=== PATIENT | female | born 1975 | race African-American/Black ===

== ENCOUNTER 2016-07-31 06:40 | Observation (INO) | payer OTHER ==
[~2016-07-31] VITALS: Ht 172.7 cm; Wt 104.3 kg
[2016-07-31] VITALS (8 sets, daily range): BP systolic 105–124; BP diastolic 53–74
[~2016-07-31 06:40] MED LIST: DIBU28OI RC
[2016-07-31] MEDS ORDERED: fentaNYL PF VIAL 100 MCG/2 ML VIAL IV PRN (07:00)
[2016-07-31] MEDS ORDERED: ONDANSETRON PF 4 MG/2 ML VIAL. IV PRN ×2 (07:00→10:00)
[2016-07-31] MEDS ORDERED: LIDOCAINE 1% 1 ML SYRINGE. ID PRN (07:00)
[2016-07-31] MEDS ORDERED: MORPHINE SULFATE 2 MG/ML DISP.SYRIN. IV PRN (07:00)
[2016-07-31] MEDS ORDERED: IV RINGERS,LACTATED 1000ML 1,000 ML IV SCH (07:00)
[2016-07-31] MEDS ORDERED: HYDROmorphone 2 MG/ML VIAL IV PRN (07:00)
[2016-07-31] MEDS ORDERED: PROCHLORPERAZINE 10 MG/2 ML VIAL. IV PRN ×2 (07:00→10:00)
[2016-07-31] MEDS ORDERED: ESTROGENS, CONJ VAGINAL CREAM 30GM TUBE. ONE (07:02)
[2016-07-31] MEDS ORDERED: BUPIVACAINE-EPI 0.25%-1:200000 MPF 30 ML VIAL. ONE (07:02)
[2016-07-31] MEDS ORDERED: METHYLENE BLUE 1% 1 ML VIAL. ONE (07:02)
[2016-07-31] MEDS ORDERED: SURGICEL HEMOSTAT 4X8 EACH. ONE (07:02)
[2016-07-31] MEDS ORDERED: LIDOCAINE 1%/EPI 1:100,000 20 ML VIAL. ONE (07:02)
[2016-07-31] MEDS ORDERED: LIDOCAINE 2% PF Vial for OR 5 ML VIAL. ONE (07:09)
[2016-07-31] MEDS ORDERED: PROPOFOL 20 ML IV ONE (07:09)
[2016-07-31] MEDS ORDERED: ROCURONIUM 50 MG/5 ML VIAL. ONE (07:09)
[2016-07-31] MEDS ORDERED: SUCCINYLCHOLINE 200 MG/10 ML VIAL. ONE (07:10)
[2016-07-31] MEDS ORDERED: FAMOTIDINE 20 MG/2 ML VIAL ONE (07:11)
[2016-07-31] MEDS ORDERED: ONDANSETRON PF 4 MG/2 ML VIAL. ONE (07:11)
[2016-07-31] MEDS ORDERED: DEXAMETHASONE SOD PHOS 20 MG/5 ML VIAL. ONE (07:11)
[2016-07-31] MEDS ORDERED: fentaNYL PF VIAL 250 MCG/5 ML VIAL ONE (07:12)
[2016-07-31] MEDS ORDERED: MIDAZOLAM HCL/PF 2 MG/2 ML VIAL. ONE (07:12)
[2016-07-31] MEDS ORDERED: OMEP20CA9 PO (07:20)
[2016-07-31] MEDS ORDERED: FERR325T31 PO (07:20)
[2016-07-31 07:32] LABS: NEG OBC UR NEG; POS OBC UR POS
[2016-07-31 07:35] LABS: BASO % 1 % (0-3); EOS % 2 % (0-3); HEMATOCRIT 36.8 % (36.0-47.0); HEMOGLOBIN 11.3 g/dL (12.0-15.5); LYMPH # 1.9 x10^3/uL (1.0-4.8); LYMPH % 50 % (24-48); MEAN CORPUSCULAR HEMOGLOBIN 25 pg (25-35); MEAN CORPUSCULAR HGB CONC 31 g/dL (31-37); MEAN CORPUSCULAR VOLUME 81 fL (79-100); MONO % 8 % (0-9); NEUT % 39 % (31-73); PLATELET COUNT 274 x10^3/uL (140-400); RED BLOOD COUNT 4.56 x10^6/uL (3.50-5.40); RED CELL DISTRIBUTION WIDTH 24.3 % (11.5-14.5); WHITE BLOOD COUNT 3.9 x10^3/uL (4.0-11.0)
[2016-07-31] MEDS ORDERED: ePHEDrine PF IN SALINE 50 MG/5 ML DISP.SYRIN IV ONE (08:17)
[2016-07-31] MEDS ORDERED: METOCLOPRAMIDE HCL 10 MG/2 ML VIAL. ONE (08:18)
[2016-07-31] MEDS ORDERED: NEOSTIGMINE 10 MG/10 ML VIAL. ONE (08:34)
[2016-07-31] MEDS ORDERED: GLYCOPYRROLATE 1 MG/5 ML VIAL. ONE (08:34)
[2016-07-31] MEDS ORDERED: fentaNYL PF VIAL 100 MCG/2 ML VIAL ONE (09:12)
[2016-07-31] MEDS ORDERED: LABETALOL 20 MG/4 ML DISP.SYRIN. ONE (09:22)
[2016-07-31] MEDS ORDERED: SEVOFLURANE 61 TO 120 MINUTES. IH ONE (09:48)
[2016-07-31 09:49] LABS: ANISOCYTOSIS MOD; HYPOCHROMIA SLIGHT; PLT ESTIMATE ADEQUATE (ADEQUATE)
[2016-07-31 09:50] LABS: MICROCYTOSIS MOD
[2016-07-31 09:51] LABS: SCHISTOCYTES FEW
[2016-07-31] MEDS ORDERED: ZOLPIDEM 5 MG TABLET. PO PRN (10:00)
[2016-07-31] MEDS ORDERED: diphenhydrAMINE HCL 25 MG CAPSULE PO PRN (10:00)
[2016-07-31] MEDS ORDERED: CALCIUM CARBONATE 500 MG TAB.CHEW PO PRN (10:00)
[2016-07-31] MEDS ORDERED: diphenhydrAMINE 50 MG/ML VIAL IV PRN (10:00)
[2016-07-31] MEDS ORDERED: 0.9 % SODIUM CHLORIDE 10 ML DISP.SYRIN. IV PRN (10:00)
[2016-07-31] MEDS ORDERED: DEXTROSE 50% 25 GM / 50ML DISP.SYRIN. IV PRN (10:00)
[2016-07-31] MEDS ORDERED: KETOROLAC TROMETHAMINE 30 MG/ML INJ. IV PRN (10:00)
[2016-07-31] MEDS ORDERED: SIMETHICONE 80 MG TAB.CHEW PO PRN (10:00)
--- NOTE | 2016-07-31 10:00 | PDOC ---
BRIEF OPERATIVE NOTE Pre-Op Diagnosis 1. Menorrhagia 2. Dysmenorrhea 3. Dyspareunia 4. Fibroids Post-Op Diagnosis SAme Procedure Performed TLH via [facility] robot Surgeon Dr. Skylar Naranjo Alexey Anesthesia Type: General Blood Loss 50 ml Specimens Obtained uterus and cervix Findings enlarged, fibroid uterus, pelvic sidewall adhesions; nml ovaries nona. Complications none Additional Remarks pt. MARYCRUZ Pal Jr, MD July 31, 2016 10:00
[2016-07-31] MEDS: fentaNYL PF VIAL 100 MCG/2 ML VIAL IV PRN ×2 (10:39→10:44)
--- NOTE | 2016-07-31 12:47 | OP ---
DATE OF SURGERY: 07/31/2016 PREOPERATIVE DIAGNOSES: 1. Menorrhagia. 2. Dysmenorrhea. 3. Dyspareunia. 4. Fibroids. POSTOPERATIVE DIAGNOSES: 1. Menorrhagia. 2. Dysmenorrhea. 3. Dyspareunia. 4. Fibroids. PROCEDURE: TLH via da Marion robot. SURGEON: Dr. Cheng. LAND AGENT: ____. ANESTHESIA: GETA. ESTIMATED BLOOD LOSS: 50 mL. COMPLICATIONS: None. FINDINGS: Enlarged fibroid uterus, pelvic sidewall adhesions, normal ovaries bilaterally, possible hydrosalpinx on the right adnexa. SUMMARY: A 41-year-old female, who required hysterectomy due to fibroids, menorrhagia, dysmenorrhea, and dyspareunia. She was counseled on risks, benefits and expectations as TLH via da Marion robot and voiced clear understanding to proceed. DESCRIPTION OF PROCEDURE: The patient was taken to surgery suite and placed in dorsal lithotomy position. She was prepped with Betadine solution for vaginal prep and ChloraPrep for abdominal prep. After adequate anesthesia, bivalve speculum was placed vaginally. Anterior lip of the cervix grasped with a single tooth tenaculum. The Yvrose uterine manipulator was then placed. Single tooth tenaculum and bivalve speculum removed. Attention was now placed on abdomen. Small transverse skin incision was made just below the umbilicus with a scalpel. The Veress needle was then placed through the infraumbilical incision site. The abdomen was allowed to insufflate up to 2.5 liters CO2 gas. The Veress needle was then removed. An 8 mm trocar was placed with camera port. Camera was positioned. The uterus appeared enlarged with fibroids. There were pelvic sidewall adhesions and right hydrosalpinx. Incisions were made in the left and right lower quadrant with a scalpel, in which 8 mm trocars were placed. An accessory port was placed in the left upper quadrant, which was a 5 mm port. The da Marion robot was then docked in normal fashion. Then proceeded to the console. With the aid of the vessel sealer and bipolar cautery, the right round ligament was coagulated and dissected. The right distal area of the hydrosalpinx was coagulated and dissected. The uterine-ovarian pedicle was coagulated and dissected. The right broad ligament as well as the right uterine artery was coagulated and dissected. Same process took place for the left adnexa. Bladder flap was created with the vessel sealer and blunt dissection. Spatula was utilized to perform the colpotomy at the level of the cervical ring. The cervix, uterus as well as the right hydrosalpinx was removed. The vaginal cuff was reapproximated using V-Loc suture in a running fashion. Suction irrigation was utilized to verify good hemostasis, small amount of normal saline was left in the posterior cul-de-sac. The trocars were removed under direct visualization. The abdomen was deflated as much as possible along with mechanical manipulation. The skin incisions were reapproximated using 4-0 Vicryl suture in subcuticular manner. A 0.25% Marcaine with epinephrine was injected at each incision site. A moist vaginal packing was placed vaginally. The patient tolerated procedure well and was taken to recovery room in stable condition. Sponge and needle counts correct x 3. MARYCRUZ CHENG MD DR: SHELL/jenny JOB#: [id number] / [id number]
[2016-07-31] MEDS: GABAPENTIN 300 MG CAPSULE. PO SCH ×2 (14:00→22:00)
[2016-07-31] MEDS: oxyCODONE/APAP 5/325 1 TAB TABLET PO PRN ×2 (17:58→22:01)
[2016-08-01 03:20] LABS: BASO % 1 % (0-3); EOS % 0 % (0-3); HEMATOCRIT 34.3 % (36.0-47.0); HEMOGLOBIN 10.4 g/dL (12.0-15.5); LYMPH # 1.4 x10^3/uL (1.0-4.8); LYMPH % 18 % (24-48); MEAN CORPUSCULAR HEMOGLOBIN 25 pg (25-35); MEAN CORPUSCULAR HGB CONC 30 g/dL (31-37); MEAN CORPUSCULAR VOLUME 81 fL (79-100); MONO % 6 % (0-9); NEUT % 75 % (31-73); PLATELET COUNT 256 x10^3/uL (140-400); RED BLOOD COUNT 4.21 x10^6/uL (3.50-5.40); WHITE BLOOD COUNT 7.7 x10^3/uL (4.0-11.0)
[2016-08-01 05:41] VITALS: BP 124/67
[2016-08-01] MEDS: GABAPENTIN 300 MG CAPSULE. PO SCH ×2 (05:52→12:30)
[2016-08-01] MEDS: oxyCODONE/APAP 5/325 1 TAB TABLET PO PRN ×3 (05:53→18:05)
[2016-08-01 12:35] VITALS: BP 118/68
--- NOTE | 2016-08-01 15:38 | PDOC ---
SURGICAL PROGRESS NOTE Subjective Pt. feeling well. Tolerating regular diet and ambulating in room. Vital Signs Vital Signs Date Time Temp Pulse Resp B/P (MAP) Pulse Ox O2 Delivery O2 Flow Rate FiO2 08/01/16 12:35 98.4 74 18 118/68 (85) 99 Room Air 98.4 07/31/16 11:40 2.0 I&O Intake and Output 08/01/16 07:00 Intake Total 2640 ml Output Total 2225 ml Balance 415 ml Intake Oral 740 ml IV Total 1900 ml Output Urine Total 2200 ml Estimated Blood Loss 25 ml PATIENT HAS A VIERA: No General: Alert, Oriented X3, Cooperative HEENT: Atraumatic Lungs: Clear to auscultation Heart: Regular rate Abdomen: Normal bowel sounds, Soft, No tenderness, No masses Extremities: No edema Psych/Mental Status: Mental status NL Labs Laboratory Tests Test 07/31/16 07:15 08/01/16 02:00 White Blood Count 3.9 x10^3/uL (4.0-11.0) 7.7 x10^3/uL (4.0-11.0) Red Blood Count 4.56 x10^6/uL (3.50-5.40) 4.21 x10^6/uL (3.50-5.40) Hemoglobin 11.3 g/dL (12.0-15.5) 10.4 g/dL (12.0-15.5) Hematocrit 36.8 % (36.0-47.0) 34.3 % (36.0-47.0) Mean Corpuscular Volume 81 fL (79-100) 81 fL (79-100) Mean Corpuscular Hemoglobin 25 pg (25-35) 25 pg (25-35) Mean Corpuscular Hemoglobin Concent 31 g/dL (31-37) 30 g/dL (31-37) Red Cell Distribution Width 24.3 % (11.5-14.5) 24.0 % (11.5-14.5) Platelet Count 274 x10^3/uL (140-400) 256 x10^3/uL (140-400) Neutrophils (%) (Auto) 39 % (31-73) 75 % (31-73) Lymphocytes (%) (Auto) 50 % (24-48) 18 % (24-48) Monocytes (%) (Auto) 8 % (0-9) 6 % (0-9) Eosinophils (%) (Auto) 2 % (0-3) 0 % (0-3) Basophils (%) (Auto) 1 % (0-3) 1 % (0-3) Neutrophils # (Auto) 1.5 x10^3uL (1.8-7.7) 5.8 x10^3uL (1.8-7.7) Lymphocytes # (Auto) 1.9 x10^3/uL (1.0-4.8) 1.4 x10^3/uL (1.0-4.8) Monocytes # (Auto) 0.3 x10^3/uL (0.0-1.1) 0.4 x10^3/uL (0.0-1.1) Eosinophils # (Auto) 0.1 x10^3/uL (0.0-0.7) 0.0 x10^3/uL (0.0-0.7) Basophils # (Auto) 0.0 x10^3/uL (0.0-0.2) 0.0 x10^3/uL (0.0-0.2) Platelet Estimate Adequate (ADEQUATE) Hypochromasia Slight Anisocytosis Mod Microcytosis Mod Schistocytes Few Urine Test Negative (NEG) Laboratory Tests Test 08/01/16 02:00 White Blood Count 7.7 x10^3/uL (4.0-11.0) Red Blood Count 4.21 x10^6/uL (3.50-5.40) Hemoglobin 10.4 g/dL (12.0-15.5) Hematocrit 34.3 % (36.0-47.0) Mean Corpuscular Volume 81 fL (79-100) Mean Corpuscular Hemoglobin 25 pg (25-35) Mean Corpuscular Hemoglobin Concent 30 g/dL (31-37) Red Cell Distribution Width 24.0 % (11.5-14.5) Platelet Count 256 x10^3/uL (140-400) Neutrophils (%) (Auto) 75 % (31-73) Lymphocytes (%) (Auto) 18 % (24-48) Monocytes (%) (Auto) 6 % (0-9) Eosinophils (%) (Auto) 0 % (0-3) Basophils (%) (Auto) 1 % (0-3) Neutrophils # (Auto) 5.8 x10^3uL (1.8-7.7) Lymphocytes # (Auto) 1.4 x10^3/uL (1.0-4.8) Monocytes # (Auto) 0.4 x10^3/uL (0.0-1.1) Eosinophils # (Auto) 0.0 x10^3/uL (0.0-0.7) Basophils # (Auto) 0.0 x10^3/uL (0.0-0.2) Assessment/Plan A: POD#1 s/p TLH P: D/c home when passsing flatus and emptying bladder. F/u in 2 weeks. Problems: MARYCRUZ RIVER Jr, MD August 01, 2016 15:38
--- NOTE | 2016-08-01 15:39 | DISCH ---
DISCHARGE INSTRUCTIONS Condition on Discharge Condition on Discharge: Stable Activity After Discharge Activity Instructions for Disc: Activity as tolerated Lifting Instructions after Dis: No heavy lifting Driving Instructions after Dis: Do not drive today Diet after Discharge Diet after Discharge: Regular Contacting the [facility]iffin after DC Call your doctor for: Concerns you may have Follow-Up Follow up with: Dr. Cheng in 2 weeks. MARYCRUZ CHENG Jr, MD August 01, 2016 15:39
[2016-08-01] MEDS ORDERED: IBUP-1060 PO (15:42)
[2016-08-01] MEDS ORDERED: DOCU-27 PO (15:42)
[2016-08-01] MEDS ORDERED: OXYC-323 PO (15:42)
[2016-08-01 18:07] VITALS: BP 118/79
--- NOTE | 2016-08-06 11:05 | PATHOLOGY ---
PATHOLOGY REPORT * * * * * * * * FINAL DIAGNOSIS: Uterus, robotic laparoscopic hysterectomy: - Adenomyosis, uterine corpus, with myometrial hypertrophy (uterine weight 202 grams). - Mild active chronic cervicitis with focal squamous metaplasia. - Nabothian cysts, cervix. - Proliferative endometrium. COMMENT: There is no evidence of malignancy. (JPM:; d/t: 08/05/16) REPORT ELECTRONICALLY SIGNED BY: Corey Wetzel M.D. DATE/TIME: 08/05/2016 13:26 * * * * * * * * GROSS PATHOLOGY: The specimen is received in formalin labeled "Malinda Rudd, uterus with cervix". Received is a 202 g, 10.7 x 6.9 x 5.9 cm uterus with attached cervix. The uterine serosa is pale ocampo in appearance with a moderate amount of adhesions present near the fundus. The 1.1 cm cervical os is surrounded by pink-zuniga, smooth ectocervical mucosa. The uterus is oriented using the peritoneal reflection and the anterior paracervical margin is inked black. The uterus is opened laterally to reveal a pale ocampo, slightly corrugated endocervical canal measuring 3.2 cm in length. The endometrial cavity is triangular measuring 9.5 cm in length by 2.5 cm in width. The endometrium is pale ocampo, glistening in appearance and measures 0.1 cm in thickness. Serial sectioning reveals a ocampo-pink, trabeculated myometrium measuring up to 3.3 cm in thickness displaying evidence of possible adenomyosis. The specimen is submitted representatively as follows: A1 12:00 cervix A2 6:00 cervix A3 anterior endomyometrium A4 posterior endomyometrium. (CAA; 08/02/2016) INITIAL CPT CODE(S): A; 48221 Professional services performed by [facility] [address] [place] [address] Technical services performed by [facility] at [address] [place] [address], [address], [place] [address]. SPECIMEN(S) RECEIVED: A.Uterus with cervix CLINICAL HISTORY: Excessive or frequent menstruation, fibroid, dysmenorrhea, dyspareunia PATIENT: MALINDA RUDD /AGE: 305/10/1975 (Age: 41) PATIENT #: [id number] ALT CASE #: SPECIMEN COLLECTION DATE: 07/31/2016 SPECIMEN RECEIVED DATE: 07/31/2016 [facility] - [address] [place] [address] - PHONE: [phone] * * * END OF REPORT * * *
== END 2016-08-01 19:30 | disposition home or self-care (01) ==
LOC: SURG 06:40 → 3 NORTH 10:20
PROVIDERS: ADMIT Obstetrics & Gynecology; ATTEND Obstetrics & Gynecology
DX: N92.0 Excessive and frequent menstruation with regular cycle (principal); N94.6 Dysmenorrhea, unspecified; N94.10 Unspecified dyspareunia; D25.9 Leiomyoma of uterus, unspecified; N73.6 Female pelvic peritoneal adhesions (postinfective)
CPT/HCPCS: 36415; 58570; 81025; 85007; 85027; 86850; 86900; 86901; 96374; A4215; G0378; G0379; J0330; J0690; J0780; J1100; J1885; J2250; J2405; J2704; J2710; J2765; J3010; J3490; J7030; J7120; S0028; S2900; 88307; Q9968

== ENCOUNTER → 2018-02-04 | Outpatient (CLI) | payer OTHER ==
[~2018-02-04] MED LIST changes: +DOCU-109 PO; +FERR-36 PO; +IBUP-1060 PO; +OMEP20CA9 PO; +OXYC1TAB15 PO
== END | disposition home or self-care (01) ==
LOC: EKG 13:21
PROVIDERS: ATTEND Family Medicine
DX: R55 Syncope and collapse (principal)
CPT/HCPCS: 93225

== ENCOUNTER → 2018-08-18 | Outpatient (CLI) | payer OTHER ==
[~2018-08-18] MED LIST changes: +OMEP20CA10 PO; -OMEP20CA9 PO
== END | disposition home or self-care (01) ==
LOC: LAB 15:51
PROVIDERS: ATTEND Obstetrics & Gynecology
DX: A60.04 Herpesviral vulvovaginitis (principal)
CPT/HCPCS: 36415; 86695

== ENCOUNTER → 2020-04-12 | Outpatient (CLI) | payer OTHER ==
[~2020-04-12] MED LIST changes: +DEXAMETHASONE SOD PHOS 4 MG/ML VIAL ONE; +LIDOCAINE 2% PF 5 ML VIAL. ONE; -OMEP20CA10 PO; +OMEP20CA16 PO; +ONDANSETRON PF 4 MG/2 ML VIAL. ONE; +PROPOFOL 10 MG/ML (20ML) VIAL. IV ONE; +SEVOFLURANE 16 TO 30 MINUTES. IH ONE; +fentaNYL PF VIAL 100 MCG/2 ML VIAL ONE
--- NOTE | 2020-04-12 17:39 | RAD ---
Examination: 1. Bilateral diagnostic mammogram. 2. Limited left breast ultrasound. INDICATION: 44-year-old woman due for mammographic screening presents with focal inferior left breast pain at mid to posterior depth. No palpable areas of concern by report. COMPARISON: None. This will serve as a baseline TECHNIQUE: CC and MLO views of both breasts were obtained with 2-D and 3-D technique and reviewed wit h computer-aided detection. Targeted ultrasound of the inferior left breast was next performed. FINDINGS: Scattered fibroglandular densities. The right and left breasts are negative. Targeted ultrasound of the inferior left breast shows an oval parallel orientation circumscribed 4 mm nodule with thin internal septation and low-level internal echoes, compatible with a small oil cyst or fat lobule. IMPRESSION: Benign findings. No evidence of malignancy. BI-RADS Category 2 Benign findings Recommend clinical management of localized left breast and in the absence of any clinically suspiciou s findings (which be biopsied if present), routine annual screening mammography next due in one year. Patient entered into a reminder system with target due date for next mammogram. Electronically signed by: Thanh See MD (04/12/2020 5:37 PM) [id number]
== END ==
LOC: MAMMO 08:28
PROVIDERS: ATTEND Obstetrics & Gynecology
DX: N64.59 Other signs and symptoms in breast (principal); N63.20 Unspecified lump in the left breast, unspecified quadrant
CPT/HCPCS: 76641; 77066; G0279; J1100; J2405; J2704; J3010; 77062